=== PATIENT | female | born 1970 | race Asian ===

== ENCOUNTER 2017-12-28 15:00 | Emergency (ER) | payer MEDICAID ==
[~2017-12-28] VITALS: Ht 157.5 cm; Wt 56.9 kg
[2017-12-28 15:29] VITALS: Ht 157.5 cm; Wt 56.9 kg
[2017-12-28 15:59] VITALS: BP 133/89
== END 2017-12-28 15:59 | disposition home or self-care (01) ==
LOC: ED 15:00
DX: R04.0 Epistaxis (principal)